=== PATIENT | male | born 1975 | race African-American/Black ===

== ENCOUNTER 2016-08-13 17:43 | Emergency (ER) | payer OTHER ==
[~2016-08-13] VITALS: Ht 165.1 cm; Wt 70.3 kg
--- NOTE | ~2016-08-13 | EKG ---
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
--- NOTE | ~2016-08-13 | EKG ---
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
[~2016-08-13 17:43] MED LIST: NOHOMEMEDICATIONS
[2016-08-13 18:21] LABS: ABSOLUTE NEUTROPHILS 2.6 thou/uL (1.4-8.2); BASOPHILS 0.6 % (0.0-2.0); EOSINOPHILS 5.1 % (0.0-3.0); HEMATOCRIT 45.2 % (42.0-52.0); HEMOGLOBIN 15.2 gm/dL (14.0-18.0); LYMPHOCYTES 40.5 % (24.0-44.0); MCH 28.8 pg (26.0-34.0); MCHC 33.6 % (28.0-37.0); MCV 85.7 fL (80.0-100.0); MONOCYTES 10.3 % (1.0-8.0); PLATELET COUNT 218 thou/uL (150-400); POLYS 43.5 % (36.0-66.0); RBC 5.27 mil/uL (4.50-6.00); RDW 14.4 % (10.5-14.5)
[2016-08-13 18:23] LABS: AMP/METHAMP Negative (Negative); BARBITURATES Negative (Negative); BENZODIAZEPINES Negative (Negative); COCAINE POSITIVE (Negative); MANUAL DIFF NO; METHADONE Negative (Negative); OPIATES Negative (Negative); PCP POSITIVE (Negative); THC Negative (Negative)
[2016-08-13 18:37] LABS: ANION GAP 13 mmol/L (7-16); BUN 15 mg/dL (7-18); CHLORIDE 104 mmol/L (98-107); CO2 25 mmol/L (21-32); CREATININE 0.9 mg/dL (0.6-1.3); GLUCOSE 82 mg/dL (70-99); SODIUM 142 mmol/L (136-145)
[2016-08-13 18:46] LABS: ALKALINE PHOSPHATASE 56 U/L (46-116); SGOT 26 U/L (15-37); SGPT 47 U/L (30-65); TOTAL BILIRUBIN 0.3 mg/dL (<0.1-1.0); TOTAL PROTEIN 8.7 g/dL (6.4-8.2); TROPONIN-I < 0.04 ng/mL (<0.04-0.07)
[2016-08-13] MEDS ORDERED: VERAPAMIL ER100 MG PO (19:01)
[2016-08-13] MEDS ORDERED: HYDROCHLOROTHIA25 M2 PO ×2 (19:02→20:14)
[2016-08-13] MEDS ORDERED: CALAN120 MG PO (20:14)
[2016-08-13 20:21] VITALS: BP 143/99
== END 2016-08-13 20:31 ==
LOC: ER 17:43
PROVIDERS: Nurse Practitioner Family
DX: R07.89 Other chest pain (principal); F14.10 Cocaine abuse, uncomplicated; Z76.0 Encounter for issue of repeat prescription; F16.10 Hallucinogen abuse, uncomplicated; E11.9 Type 2 diabetes mellitus without complications; F17.210 Nicotine dependence, cigarettes, uncomplicated; F10.99 Alcohol use, unspecified with unspecified alcohol-induced disorder